=== PATIENT | female | born 1990 ===

== ENCOUNTER 2024-02-09 13:43 | Outpatient (REF) | payer BC, SELFPAY | END 2024-02-09 13:44 | disposition home or self-care (01) | LOC: NCHCN 13:43 | PROVIDERS: Visit Provider Registered Nurse | DX: R21 Rash and other nonspecific skin eruption (principal); B95.62 Methicillin resistant Staphylococcus aureus infection as the cause of diseases classified elsewhere | CPT/HCPCS: 87077; 87070; 87186; 87205 ==